=== PATIENT | female | born 1975 | race African-American/Black ===

== ENCOUNTER 2016-10-27 02:50 | Day surgery (SDC) | payer MEDICAID, OTHER ==
[~2016-10-27] VITALS: Ht 175.3 cm; Wt 56.8 kg
[2016-10-27 02:53] VITALS: BP 124/63
--- NOTE | 2016-10-27 02:53 | NUR ---
PT PHILLIP ALS. TAKEN TO BED 4
--- NOTE | 2016-10-27 03:08 | NUR ---
41Y/F PATIENT BIBA TO ED WITH C/O VAGINAL BLEEDINF X 10 PADS. PT STATES A1, IUP 12WKS. PT STATES SHE STARTED BLEEDING AROUND 1900 YESTERDAY, WENT TO SEE DX.MISCARRIAGE, TODAY STILL HAVE HEAVY VAGINAL BLEEDING.DENIES N/V/D; SKIN IS PINK/WARM/DRY; AAOX4 WITH EVEN AND STEADY GAIT; LUNGS CLEAR BL; HR EVEN AND REGULAR; PT DENIES ANY FEVER, CP, SOB, OR COUGH AT THIS TIME; C/O ABDOMINAL PAIN WITH VAGINAL BLEEDING, PATIENT STATES PAIN OF 10/10 AT THIS TIME; VSS; PATIENT POSITIONED FOR COMFORT; HOB ELEVATED; BEDRAILS UP X2; BED DOWN. ER MD MADE AWARE OF PT STATUS.
--- NOTE | 2016-10-27 03:09 | NUR ---
Patient being evaluated by at bedside.
[2016-10-27] MEDS ORDERED: NACL 0.9% 1,000 ML IV ONE (03:15)
[2016-10-27] MEDS ORDERED: KETOROLAC 30 MG/ML VIAL IVP ONE (03:15)
--- NOTE | 2016-10-27 04:10 | NUR ---
Female Senior Qc Technician accompanied female patient for Pelvic Exam.
--- NOTE | 2016-10-27 05:25 | NUR ---
Patient will be admitted to care of . Admited to MED-SURG. Will go to room 120B. Belongings list completed. Report to MARGARITA LEONG.
[2016-10-27 05:40] VITALS: BP 110/65
--- NOTE | 2016-10-27 05:40 | NUR ---
ADMITTED A 41F F FROM ER. MED SURG PT. CAME BY KEVEN DUE TO VAGINAL BLEEDING X 1 DAY. PT IS 12 WEEKS . AWAKE ,ALERT AND ORIENTED X4. AMBULATORY. NO ABDOMINAL PAIN NOTED AT THIS TIME. MEDICATED FOR PAIN IN ER PRIOR TO ADMISSION TO FLOOR. HAS HL ON THE RT HAND #[id number]. CLEAR AND PATENT. ORIENTED TO HOSPITAL ROUTINES,CALL LIGHT WITHIN EASY REACH. PLAN OF CARE DISCUSSED AND VERBALIZED UNDERSTANDING. WILL CONTINUE TO MONITOR.
--- NOTE | 2016-10-27 06:00 | NUR ---
PT SAID LAST TIME SHE ATE WAS 7PM LAST NIGHT. ADVISED PT NOT TO EAT OR DRINK FOR POSSIBLE SURGERY TODAY.
[2016-10-27] MEDS ORDERED: ACETAMINOPHEN/CODEINE 300/30MG 1 TAB PO PRN (06:35)
[2016-10-27] MEDS ORDERED: MORPHINE SULFATE 4 MG/ML SYR IVP PRN ×2 (06:35→11:25)
[2016-10-27] MEDS ORDERED: ONDANSETRON 4 MG/2 ML VIAL IVP PRN (06:35)
[2016-10-27] MEDS ORDERED: IBUPROFEN 800 MG TAB PO PRN (06:35)
--- NOTE | 2016-10-27 06:43 | NUR ---
DR. Gavin TERRY CAME AND SEEN PT. WITH ORDERS.
[2016-10-27] MEDS ORDERED: LACTATED RINGERS 1,000 ML IV SCH (06:50)
--- NOTE | 2016-10-27 07:15 | NUR ---
SEE PAPER CHARTING.
--- NOTE | 2016-10-27 07:30 | NUR ---
ENDORSED PT IN STABLE CONDITION TO AM NURSE.
[2016-10-27 08:00] VITALS: BP 98/66
--- NOTE | 2016-10-27 09:00 | NUR ---
SEE PAPER CHARTING.
[2016-10-27] MEDS ORDERED: fentaNYL 0.05 MG/ML VIAL ONE ×2 (09:51→09:58)
[2016-10-27] MEDS ORDERED: PROPOFOL 200 MG/20 ML VIAL IV ONE (09:51)
[2016-10-27] MEDS ORDERED: MIDAZOLAM 2 MG/2 ML VIAL ONE ×2 (09:51→09:59)
--- NOTE | 2016-10-27 10:59 | NUR ---
PATIENT HAS BEEN SCREENED AND CATEGORIZED LOW NUTRITION RISK. PATIENT WILL BE SEEN WITHIN 7 DAYS OF ADMISSION. 11/02/[address]
--- NOTE | 2016-10-27 11:40 | NUR ---
PATIENT RETURNED TO THE UNIT FROM OR. RECEIVED REPORT FROM WIRE STRAIGHTENING MACHINE OPERATOR. PT IN STABLE CONDITION. NO S/S OF ACUTE RESPIRATORY/CARDIAC DISTRESS. NO COMPLAINTS OF S/P PAIN. MINIMAL SANGUINOUS VAGINAL SPOTTING. CALL LIGHT WITHIN REACH. WILL CONTINUE TO MONITOR.
[2016-10-27 12:00] VITALS: BP 107/70
--- NOTE | 2016-10-27 14:00 | NUR ---
PT AWAKE, EATING LUNCH. NO S/S OF ACUTE DISTRESS OR DISCOMFORT. VS STABLE. CALL LIGHT WITHIN REACH. WILL CONTINUE TO MONITOR.
--- NOTE | 2016-10-27 17:40 | NUR ---
DISCHARGED TEACHING PROVIDED, PT VERBALIZED UNDERSTANDING. DISCHARGED PAPERWORK SIGNED. PROVIDED COPY. REMOVED IV, INTACT AND PATENT. REMOVED ARM BANDS. PT AWAKE. NO S/S OF ACUTE DISTRESS OR DISCOMFORT. WHEELCHAIRED PT TO FRONT LOBBY IN STABLE CONDITION.
== END 2016-10-27 17:40 | disposition home or self-care (01) ==
LOC: MED 02:50 → MTU 05:17 → MED 05:17
PROVIDERS: ATTEND Obstetrics & Gynecology
DX: O02.1 Missed abortion (principal); Z3A.12 12 weeks gestation of pregnancy
CPT/HCPCS: 36415; 59820; 76801; 76817; 80048; 81001; 84702; 85025; 85610; 86886; 86900; 86901; 87081; 96361; 96374; 99285; J1885; J2250; J2704; J3010; J7030; J7120; Q0092